=== PATIENT | female | born 1995 | race Caucasian/White ===

== ENCOUNTER 2018-07-24 17:57 | Emergency (ER) | payer BC ==
--- NOTE | 2018-07-24 18:05 | EDM.PDOC ---
ED HPI GENERAL MEDICAL PROBLEM - General Stated Complaint: INJURED ANKLE Time Seen by Provider: 07/24/18 18:00 Source of Information: Reports: Patient History Limitations: Reports: No Limitations - History of Present Illness INITIAL COMMENTS - FREE TEXT/NARRATIVE: HISTORY AND PHYSICAL: History of present illness: Patient is a 22-year-old female who presents to the emergency room complaints of left ankle pain. She states on Wednesday she was attending a while in [place] and [facility] She was unable to be evaluated at that time and waited until she returned to [place]. Since Wednesday she has had increased pain, tenderness and swelling to the left lateral ankle. Pain does not radiate up into the posterior calf. She denies any numbness or tingling to the affected extremity. CMS intact. Review of systems: As per history of present illness and below otherwise all systems reviewed and negative. Past medical history: As per history of present illness and as reviewed below otherwise noncontributory. Surgical history: As per history of present illness and as reviewed below otherwise noncontributory. Social history: See social history for further information Family history: As per history of present illness and as reviewed below otherwise noncontributory. Physical exam: General: Well-developed and well nourished 22-year-old female. Alert and oriented. Nontoxic appearing and in no acute distress. HEENT: Atraumatic, normocephalic, pupils equal and reactive bilaterally, negative for conjunctival pallor or scleral icterus, mucous membranes moist, throat clear, neck supple, nontender, trachea midline. No drooling or trismus noted. No meningeal signs Lungs: Clear to auscultation, breath sounds equal bilaterally, chest nontender. Heart: S1S2, regular rate and rhythm without overt murmur Abdomen: Soft, nondistended, nontender. Negative for masses or hepatosplenomegaly. Negative for costovertebral tenderness. Pelvis: Stable nontender. Genitourinary: Deferred. Rectal: Deferred. Skin: Soft tissue swelling and bruising noted to the left lateral ankle going into the posterior ankle. Otherwise skin is intact, warm, dry. No lesions or rashes noted. Extremities: Moves all extremities per self without difficulty or deficits. Does have tenderness to the lateral malleolus. Pain with weightbearing. +1 pitting edema. Strong pedal and pretibial pulse. Capillary refill less than 3 seconds, negative for cords or calf pain. Neurovascular unremarkable. Neuro: Awake, alert, oriented. Cranial nerves II through XII unremarkable. Cerebellum unremarkable. Motor and sensory unremarkable throughout. Exam nonfocal. Notes: X-ray shows a fracture of the distal shaft of the fibula with adjacent lateral ankle swelling. There is widening of the medial ankle joint space. This information was shared with the patient. Posterior custom fiberglass splint applied. Crutches fitted. Supportive care measures were reviewed and discussed. Patient is encouraged her to follow-up with the orthopedic provider next week. She needs to call Wednesday to set this appointment. A referral has been sent. We discussed signs and symptoms that would prompt him to return to the emergency room. She voices understanding and is agreeable to plan of care. Denies any further questions or concerns at this time. Diagnostics: Ankle X-ray Therapeutics: Crutches, 1/2 cast fiberglass custom splint, norco Prescription: [place] (#30) Impression: Distal fibula fracture, left Plan: 1. Rest, ice, elevate the affected extremity as able. Keep the splint on for comfort purposes; be non-weightbearing with your crutches. 2. Tylenol and/or ibuprofen as needed for pain management. [place] for moderate to severe pain. This medication may cause drowsiness a do not take it will driving her needing to be functioning outside of the house. 3. Follow-up with the orthopedic provider on Wednesday. Call to set up a follow up appointment tomorrow morning. Return to the ED as needed and as discussed. Definitive disposition and diagnosis as appropriate pending reevaluation and review of above. 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 Musculoskeletal History: Reports: None Neurological History: Reports: None Psychiatric History: Reports: Anxiety Endocrine/Metabolic History: Reports: None Hematologic History: Reports: None Immunologic History: Reports: None Oncologic (Cancer) History: Reports: None Dermatologic History: Reports: None - Past Surgical History Head Surgeries/Procedures: Reports: None HEENT Surgical History: Reports: None Cardiovascular Surgical History: Reports: None Respiratory Surgical History: Reports: None GI Surgical History: Reports: None Female Surgical History: Reports: None Endocrine Surgical History: Reports: None Neurological Surgical History: Reports: None Musculoskeletal Surgical History: Reports: None Oncologic Surgical History: Reports: None Review of Systems - Review of Systems Review Of Systems: ROS reveals no pertinent complaints other than HPI. ED EXAM, GENERAL - Physical Exam Exam: See Below (See dictation) Course - Vital Signs Last Recorded V/S: Last Vital Signs Temp 97.6 F 07/24/18 18:09 Pulse 76 07/24/18 18:09 Resp 18 07/24/18 18:09 BP 132/80 07/24/18 18:09 Pulse Ox 98 07/24/18 18:09 - Orders/Labs/Meds Orders: Active Orders 24 hr Category Date Time Status Ankle Min 3V Lt [CR] Stat Exams 07/24/18 18:10 Ordered DME for Discharge [COMM] Stat Oth 07/24/18 18:10 Ordered Meds: Medications Discontinued Medications Generic Name Dose Route Start Last Admin Trade Name Asim PRN Reason Stop Dose Admin Hydrocodone Bitart/Acetaminophen 1 tab 07/24/18 18:54 07/24/18 19:04 [place] 325-5 Mg PO 07/24/18 18:55 1 tab ONETIME ONE Administration Departure - Departure Time of Disposition: 19:02 Disposition: Home, Self-Care 01 Clinical Impression: Fracture of distal fibula Qualifiers: Encounter type: initial encounter Fracture type: closed Fracture morphology: unspecified fracture morphology Laterality: left Qualified Code(s): S82.832A - Other fracture of upper and lower end of left fibula, initial encounter for closed fracture - Discharge Information Referrals: PCP,Unknown [Primary Care Provider] - Additional Instructions: The following information is given to patients seen in the emergency department who are being discharged to home. This information is to outline your options for follow-up care. We provide all patients seen in our emergency department with a follow-up referral. The need for follow-up, as well as the timing and circumstances, are variable depending upon the specifics of your emergency department visit. If you don't have a primary care physician on staff, we will provide you with a referral. We always advise you to contact your personal physician following an emergency department visit to inform them of the circumstance of the visit and for follow-up with them and/or the need for any referrals to a consulting specialist. The emergency department will also refer you to a specialist when appropriate. This referral assures that you have the opportunity for follow-up care with a specialist. All of these measure are taken in an effort to provide you with optimal care, which includes your follow-up. Under all circumstances we always encourage you to contact your private physician who remains a resource for coordinating your care. When calling for follow-up care, please make the office aware that this follow-up is from your recent emergency room visit. If for any reason you are refused follow-up, please contact the [facility] Emergency Department at and asked to speak to the emergency department charge nurse. [facility] [address] [place] [id number] [facility] - [facility] Professional [address], [address] [place] [address] 1. Rest, ice, elevate the affected extremity as able. Keep the splint on for comfort purposes; be non-weightbearing with your crutches. 2. Tylenol and/or ibuprofen as needed for pain management. [place] for moderate to severe pain. This medication may cause drowsiness a do not take it will driving her needing to be functioning outside of the house. 3. Follow-up with the orthopedic provider on Wednesday. Call to set up a follow up appointment tomorrow morning. Return to the ED as needed and as discussed. - My Orders Last 24 Hours: My Active Orders 07/24/18 18:10 Ankle Min 3V Lt [CR] Stat DME for Discharge [COMM] Stat - Assessment/Plan Last 24 Hours: My Active Orders 07/24/18 18:10 Ankle Min 3V Lt [CR] Stat DME for Discharge [COMM] Stat
[2018-07-24] MEDS ORDERED: Acetaminophen/HYDROcodone 325-5 MG Tab PO ONE (18:54)
[2018-07-24 19:40] VITALS: BP 122/74
--- NOTE | 2018-07-25 20:31 | CR ---
EXAM DATE: 07/24/18 PATIENT'S AGE: 22 Patient: CAT ROGERS Facility: [place], [place] Site . Site : 1995 Study: XRay Extremity Left ankle [id number]/[id number] 6:54:21 PM Ordering Physician: Doctor Garcia Final Report: INDICATION: Pain following fall 1 week prior TECHNIQUE: Three views left ankle COMPARISON: None FINDINGS: Bones: Fracture distal shaft of the fibula. Joint spaces: Mild widening of the medial joint space. Soft tissues: Lateral ankle edema. IMPRESSION: Fracture distal shaft of the fibula with adjacent lateral ankle edema. Widening of the medial ankle joint space. Dictated by Abe Felder MD @ 07/24/2018 7:17:12 PM Dictated by: Abe Felder MD @ 07/24/2018 19:17:23 (Electronic Signature) Report Signed by Proxy. LINDSEY
== END 2018-07-24 19:40 | disposition home or self-care (01) ==
LOC: MW.ED 17:57
DX: S82.832A Other fracture of upper and lower end of left fibula, initial encounter for closed fracture (principal); W10.1XXA Fall (on)(from) sidewalk curb, initial encounter
CPT/HCPCS: 29515; 73610; 99283; A9270